=== PATIENT | female | born 1970 | race American Indian/Alaskan Native ===

== ENCOUNTER 2020-08-06 00:30 | Inpatient (IN) ==
[2020-08-06] MEDS ORDERED: DEXAMETHASONE 4 MG/1 ML VIAL IV STA (01:16)
[2020-08-06] MEDS ORDERED: SODIUM CHLORIDE 0.9% 1,000 ML IV STA (01:16)
[2020-08-06 01:47] LABS: Basophils % 0.2 % (0.0-0.8); Hematocrit 46.4 VOL% (35.7-47.0); Hemoglobin 15.1 GM/DL (12.0-16.0); Immature Granulocytes % 0.2 %; Immature Granulocytes Absolute 0.01 #; Lymphocytes # 1.7 10*3/uL (1.4-4.0); Lymphocytes % 40.1 % (21.3-54.2); Mean Corpuscular HGB Conc 32.5 GM/DL (32-36); Mean Corpuscular Volume 100.2 FL (87-102); Mean Platelet Volume 9.5 FL (9.6-12.0); Monocytes % 17.1 % (1.7-12.7); Neutrophils % 42.4 % (38.7-73.9); Platelet Count 155 T/CUMM (130-400); Red Blood Count 4.63 MC/CUMM (3.8-5.5); White Blood Count 4.1 T/CUMM (4-12)
[2020-08-06 01:59] LABS: PT Patient Result 10.5 SECS (9.8-11.9); Partial Thromboplastin Time 31.2 SECS (23.9-33.8)
[2020-08-06 02:03] LABS: Calcium 8.3 MG/DL (8.5-10.1); Osmolality,Calculated 274.8 MOS/KG (273-304); Potassium 4.2 MMOL/L (3.5-5.1)
[2020-08-06] MEDS ORDERED: AZITHROMYCIN INJ 500 MG in SODIUM CHLORIDE 0.9% 250 ML IV STA (02:09)
[2020-08-06] MEDS ORDERED: cefTRIAXone 1,000 MG in SODIUM CHLORIDE 0.9% 100 ML IV STA (02:09)
[2020-08-06] MEDS ORDERED: DEXTROSE 50% 25 GM/50 ML VIAL IV PRN (02:25)
[2020-08-06] MEDS ORDERED: GLUCAGON 1 MG VIAL IM PRN (02:25)
[2020-08-06] MEDS ORDERED: ONDANSETRON 4 MG/2 ML VIAL IV PRN (02:25)
[2020-08-06 02:30] LABS: Lymphocytes 29 % (20-55); Segmented Neutrophils 56 % (50-85); Total Cells Counted 100
[2020-08-06] MEDS ORDERED: DEXAMETHASONE 0.5 MG TABLET PO SCH (02:30)
[2020-08-06] MEDS ORDERED: SODIUM CHLORIDE 0.9% 1,000 ML IV SCH (02:30)
[2020-08-06 02:31] LABS: Macrocytosis 1+; Platelet Estimate Normal
[2020-08-06] MEDS ORDERED: amLODIPine 5 MG TABLET PO SCH (03:00)
[2020-08-06] MEDS: SODIUM CHLORIDE 0.9% 1,000 ML IV SCH ×2 (04:25→14:32)
[2020-08-06 05:50] LABS: Hematocrit 45.5 VOL% (35.7-47.0); Hemoglobin 14.8 GM/DL (12.0-16.0); Immature Granulocytes % 0.4 %; Immature Granulocytes Absolute 0.01 #; Lymphocytes # 0.7 10*3/uL (1.4-4.0); Mean Corpuscular HGB Conc 32.5 GM/DL (32-36); Mean Platelet Volume 9.3 FL (9.6-12.0); Monocytes % 10.5 % (1.7-12.7); Neutrophils % 62.1 % (38.7-73.9); Platelet Count 135 T/CUMM (130-400); Red Blood Count 4.55 MC/CUMM (3.8-5.5); Red Cell Distribution Width 13.1 % (9.3-17.3); White Blood Count 2.6 T/CUMM (4-12)
[2020-08-06 06:10] LABS: Potassium 4.8 MMOL/L (3.5-5.1)
[2020-08-06 06:16] LABS: C-Reactive Protein HS Cardiac 1.27 MG/DL (0-0.3); Ferritin 435.5 ng/ml (8-252)
[2020-08-06] MEDS: ENOXAPARIN 40 MG/0.4 ML SYRINGE SUBCUT SCH (06:20)
[2020-08-06] MEDS: PANTOPRAZOLE 40 MG TABLET PO SCH (08:13)
[2020-08-06] MEDS: CHOLECALCIFEROL 1,000 UNIT TABLET PO SCH (08:14)
[2020-08-06] MEDS: ASCORBIC ACID 500 MG TABLET PO SCH ×2 (08:14→20:54)
[2020-08-06] MEDS: CETIRIZINE 10 MG TABLET PO SCH (08:14)
[2020-08-06] MEDS: MONTELUKAST 10 MG TABLET PO SCH (08:14)
[2020-08-06] MEDS: ZINC SULFATE 220 MG CAPSULE PO SCH (08:14)
[2020-08-06] MEDS ORDERED: lisinopriL 20 MG TABLET PO SCH (09:00)
[2020-08-06] MEDS ORDERED: REMDESIVIR 200 MG in SODIUM CHLORIDE 0.9% 210 ML IV ONE (09:30)
[2020-08-06] MEDS ORDERED: SODIUM CHLORIDE 0.9% 1,000 ML IV PRN (14:00)
[2020-08-06] MEDS: cefTRIAXone 2,000 MG in SODIUM CHLORIDE 0.9% 100 ML IV SCH (20:54)
[2020-08-07] MEDS: SODIUM CHLORIDE 0.9% 1,000 ML IV SCH ×3 (01:54→23:45)
[2020-08-07] MEDS: DEXAMETHASONE 4 MG/1 ML VIAL IV SCH (03:50)
[2020-08-07] MEDS: ENOXAPARIN 40 MG/0.4 ML SYRINGE SUBCUT SCH (05:40)
[2020-08-07] MEDS: CHOLECALCIFEROL 1,000 UNIT TABLET PO SCH (09:03)
[2020-08-07] MEDS: FOLIC ACID 1 MG TABLET PO SCH (09:04)
[2020-08-07] MEDS: ZINC SULFATE 220 MG CAPSULE PO SCH (09:04)
[2020-08-07] MEDS: MULTIVITAMIN (CENTRUM) TABLET PO SCH (09:04)
[2020-08-07] MEDS: REMDESIVIR 100 MG in SODIUM CHLORIDE 0.9% 100 ML IV SCH (09:04)
[2020-08-07] MEDS: MONTELUKAST 10 MG TABLET PO SCH (09:04)
[2020-08-07] MEDS: PANTOPRAZOLE 40 MG TABLET PO SCH (09:04)
[2020-08-07] MEDS: CETIRIZINE 10 MG TABLET PO SCH (09:04)
[2020-08-07] MEDS: ASCORBIC ACID 500 MG TABLET PO SCH ×2 (09:04→20:21)
[2020-08-07] MEDS: AZITHROMYCIN 250 MG TABLET PO SCH (09:04)
[2020-08-07] MEDS: cefTRIAXone 2,000 MG in SODIUM CHLORIDE 0.9% 100 ML IV SCH (20:21)
[2020-08-08] MEDS: DEXAMETHASONE 4 MG/1 ML VIAL IV SCH (03:47)
[2020-08-08] MEDS: ENOXAPARIN 40 MG/0.4 ML SYRINGE SUBCUT SCH (06:20)
[2020-08-08] MEDS: CHOLECALCIFEROL 1,000 UNIT TABLET PO SCH (08:52)
[2020-08-08] MEDS: CETIRIZINE 10 MG TABLET PO SCH (08:52)
[2020-08-08] MEDS: ZINC SULFATE 220 MG CAPSULE PO SCH (08:52)
[2020-08-08] MEDS: MONTELUKAST 10 MG TABLET PO SCH (08:52)
[2020-08-08] MEDS: MULTIVITAMIN (CENTRUM) TABLET PO SCH (08:53)
[2020-08-08] MEDS: ASCORBIC ACID 500 MG TABLET PO SCH ×2 (08:53→20:15)
[2020-08-08] MEDS: FOLIC ACID 1 MG TABLET PO SCH (08:53)
[2020-08-08] MEDS: AZITHROMYCIN 250 MG TABLET PO SCH (08:53)
[2020-08-08] MEDS: PANTOPRAZOLE 40 MG TABLET PO SCH (08:54)
[2020-08-08] MEDS: REMDESIVIR 100 MG in SODIUM CHLORIDE 0.9% 100 ML IV SCH (09:16)
[2020-08-08] MEDS: SODIUM CHLORIDE 0.9% 1,000 ML IV SCH ×2 (10:18→20:15)
[2020-08-08] MEDS: METHOTREXATE 2.5 MG TABLET PO SCH (10:22)
[2020-08-08] MEDS: cefTRIAXone 2,000 MG in SODIUM CHLORIDE 0.9% 100 ML IV SCH (20:15)
[2020-08-09] MEDS: DEXAMETHASONE 4 MG/1 ML VIAL IV SCH (02:10)
[2020-08-09] MEDS: ENOXAPARIN 40 MG/0.4 ML SYRINGE SUBCUT SCH (06:30)
[2020-08-09] MEDS: SODIUM CHLORIDE 0.9% 1,000 ML IV SCH (07:08)
[2020-08-09] MEDS: AZITHROMYCIN 250 MG TABLET PO SCH (08:56)
[2020-08-09] MEDS: ZINC SULFATE 220 MG CAPSULE PO SCH (08:56)
[2020-08-09] MEDS: MONTELUKAST 10 MG TABLET PO SCH (08:57)
[2020-08-09] MEDS: REMDESIVIR 100 MG in SODIUM CHLORIDE 0.9% 100 ML IV SCH (08:57)
[2020-08-09] MEDS: PANTOPRAZOLE 40 MG TABLET PO SCH (08:57)
[2020-08-09] MEDS: FOLIC ACID 1 MG TABLET PO SCH (08:57)
[2020-08-09] MEDS: CETIRIZINE 10 MG TABLET PO SCH (08:57)
[2020-08-09] MEDS: ASCORBIC ACID 500 MG TABLET PO SCH ×2 (08:57→21:00)
[2020-08-09] MEDS: CHOLECALCIFEROL 1,000 UNIT TABLET PO SCH (08:57)
[2020-08-09] MEDS: MULTIVITAMIN (CENTRUM) TABLET PO SCH (08:57)
[2020-08-09] MEDS ORDERED: INFLUENZA VIRUS VACCINE 0.5 ML SYRINGE IM ONE (09:00)
[2020-08-09] MEDS ORDERED: FUROSEMIDE 40 MG/4 ML VIAL IV ONE (09:31)
[2020-08-09 10:30] LABS: Hematocrit 41.8 VOL% (35.7-47.0); Hemoglobin 13.7 GM/DL (12.0-16.0); Immature Granulocytes % 0.4 %; Immature Granulocytes Absolute 0.02 #; Lymphocytes # 0.7 10*3/uL (1.4-4.0); Lymphocytes % 14.6 % (21.3-54.2); Mean Corpuscular HGB Conc 32.8 GM/DL (32-36); Mean Platelet Volume 9.6 FL (9.6-12.0); Monocytes % 7.8 % (1.7-12.7); Neutrophils % 77.2 % (38.7-73.9); Platelet Count 155 T/CUMM (130-400); Red Blood Count 4.18 MC/CUMM (3.8-5.5); Red Cell Distribution Width 13.1 % (9.3-17.3); White Blood Count 4.6 T/CUMM (4-12)
[2020-08-09 10:45] LABS: Calcium 8.5 MG/DL (8.5-10.1); Osmolality,Calculated 279.4 MOS/KG (273-304); Potassium 4.1 MMOL/L (3.5-5.1)
[2020-08-09] MEDS: cefTRIAXone 2,000 MG in SODIUM CHLORIDE 0.9% 100 ML IV SCH (21:00)
[2020-08-10] MEDS: DEXAMETHASONE 4 MG/1 ML VIAL IV SCH (02:37)
[2020-08-10] MEDS: ENOXAPARIN 40 MG/0.4 ML SYRINGE SUBCUT SCH (05:55)
[2020-08-10] MEDS: FOLIC ACID 1 MG TABLET PO SCH (08:15)
[2020-08-10] MEDS: CETIRIZINE 10 MG TABLET PO SCH (08:15)
[2020-08-10] MEDS: MONTELUKAST 10 MG TABLET PO SCH (08:15)
[2020-08-10] MEDS: AZITHROMYCIN 250 MG TABLET PO SCH (08:15)
[2020-08-10] MEDS: ZINC SULFATE 220 MG CAPSULE PO SCH (08:15)
[2020-08-10] MEDS: ASCORBIC ACID 500 MG TABLET PO SCH ×2 (08:15→20:33)
[2020-08-10] MEDS: PANTOPRAZOLE 40 MG TABLET PO SCH (08:15)
[2020-08-10] MEDS: CHOLECALCIFEROL 1,000 UNIT TABLET PO SCH (08:16)
[2020-08-10] MEDS: REMDESIVIR 100 MG in SODIUM CHLORIDE 0.9% 100 ML IV SCH (08:43)
[2020-08-10] MEDS: MULTIVITAMIN (CENTRUM) TABLET PO SCH (08:43)
[2020-08-10] MEDS ORDERED: FUROSEMIDE 40 MG/4 ML VIAL IV ONE (10:24)
[2020-08-10] MEDS: ACETAMINOPHEN 325 MG TABLET PO PRN (20:32)
[2020-08-10] MEDS: FAMOTIDINE 20 MG TABLET PO SCH (20:32)
[2020-08-10] MEDS: cefTRIAXone 2,000 MG in SODIUM CHLORIDE 0.9% 100 ML IV SCH (20:33)
[2020-08-11] MEDS: DEXAMETHASONE 4 MG/1 ML VIAL IV SCH (02:53)
[2020-08-11 04:55] LABS: Basophils % 0.2 % (0.0-0.8); Eosinophils % 0.4 % (0.00-10.9); Hematocrit 42.4 VOL% (35.7-47.0); Hemoglobin 14.1 GM/DL (12.0-16.0); Immature Granulocytes % 0.2 %; Immature Granulocytes Absolute 0.01 #; Lymphocytes # 1.5 10*3/uL (1.4-4.0); Lymphocytes % 32.7 % (21.3-54.2); Mean Corpuscular HGB Conc 33.3 GM/DL (32-36); Mean Corpuscular Volume 98.1 FL (87-102); Mean Platelet Volume 9.8 FL (9.6-12.0); Monocytes % 10.5 % (1.7-12.7); Platelet Count 200 T/CUMM (130-400); Red Blood Count 4.32 MC/CUMM (3.8-5.5); Red Cell Distribution Width 12.9 % (9.3-17.3); White Blood Count 4.6 T/CUMM (4-12)
[2020-08-11] MEDS: ENOXAPARIN 40 MG/0.4 ML SYRINGE SUBCUT SCH (05:05)
[2020-08-11 05:32] LABS: Albumin 2.7 G/DL (3.4-5.0); Bilirubin,Direct 0.16 MG/DL (0.0-0.20); Bilirubin,Indirect 0.8 MG/DL (0.0-1.0); Calcium 8.6 MG/DL (8.5-10.1); Ferritin 394.5 ng/ml (8-252); Osmolality,Calculated 278.5 MOS/KG (273-304); Potassium 3.6 MMOL/L (3.5-5.1); Total Protein 7.3 G/DL (5.0-7.5)
[2020-08-11] MEDS: AZITHROMYCIN 250 MG TABLET PO SCH (08:29)
[2020-08-11] MEDS: CETIRIZINE 10 MG TABLET PO SCH (08:29)
[2020-08-11] MEDS: ASCORBIC ACID 500 MG TABLET PO SCH ×2 (08:29→20:27)
[2020-08-11] MEDS: ZINC SULFATE 220 MG CAPSULE PO SCH (08:29)
[2020-08-11] MEDS: MONTELUKAST 10 MG TABLET PO SCH (08:29)
[2020-08-11] MEDS: FOLIC ACID 1 MG TABLET PO SCH (08:29)
[2020-08-11] MEDS: FAMOTIDINE 20 MG TABLET PO SCH ×2 (08:29→20:27)
[2020-08-11] MEDS: CHOLECALCIFEROL 1,000 UNIT TABLET PO SCH (08:29)
[2020-08-11] MEDS: MULTIVITAMIN (CENTRUM) TABLET PO SCH (08:30)
[2020-08-11 10:46] LABS: ABG Base Excess 5.5 MMOL/L (-2.5-2.5); ABG HCO3 29.2 MMOL/L (20-26); ABG PCO2 47.6 MM HG (35-48); ABG PH 7.424 (7.35-7.45); ABG PO2 68.2 MM HG (80-95); ABG TCO2 26.3 MMOL/L (23-27)
[2020-08-11] MEDS: FUROSEMIDE 40 MG/4 ML VIAL IV SCH (14:33)
[2020-08-11] MEDS: ALBUTEROL INHALER 18 GM INH SCH (18:14)
[2020-08-11] MEDS: FLUTICASONE/SALMETEROL 100-50 DISKUS 14 DOSE INH SCH (20:27)
[2020-08-12] MEDS: ALBUTEROL INHALER 18 GM INH SCH ×4 (00:03→18:31)
[2020-08-12] MEDS: DEXAMETHASONE 4 MG/1 ML VIAL IV SCH (04:02)
[2020-08-12] MEDS: ENOXAPARIN 40 MG/0.4 ML SYRINGE SUBCUT SCH (05:36)
[2020-08-12] MEDS: ZINC SULFATE 220 MG CAPSULE PO SCH (08:38)
[2020-08-12] MEDS: FUROSEMIDE 40 MG/4 ML VIAL IV SCH (08:38)
[2020-08-12] MEDS: ASCORBIC ACID 500 MG TABLET PO SCH ×2 (08:39→20:08)
[2020-08-12] MEDS: CHOLECALCIFEROL 1,000 UNIT TABLET PO SCH (08:39)
[2020-08-12] MEDS: FLUTICASONE/SALMETEROL 100-50 DISKUS 14 DOSE INH SCH ×2 (08:39→20:08)
[2020-08-12] MEDS: CETIRIZINE 10 MG TABLET PO SCH (08:39)
[2020-08-12] MEDS: FOLIC ACID 1 MG TABLET PO SCH (08:39)
[2020-08-12] MEDS: MULTIVITAMIN (CENTRUM) TABLET PO SCH (08:39)
[2020-08-12] MEDS: MONTELUKAST 10 MG TABLET PO SCH (08:39)
[2020-08-12] MEDS: FAMOTIDINE 20 MG TABLET PO SCH ×2 (08:39→20:08)
[2020-08-13] MEDS: ALBUTEROL INHALER 18 GM INH SCH ×4 (00:15→19:24)
[2020-08-13] MEDS: DEXAMETHASONE 4 MG/1 ML VIAL IV SCH (02:28)
[2020-08-13 03:37] LABS: ABG Base Excess 5.7 MMOL/L (-2.5-2.5); ABG HCO3 29.9 MMOL/L (20-26); ABG Oxygen Saturation 89.1 % (95-100); ABG PCO2 41.9 MM HG (35-48); ABG PH 7.472 (7.35-7.45); ABG PO2 57.3 MM HG (80-95); ABG TCO2 31.2 MMOL/L (23-27)
[2020-08-13 05:47] LABS: Osmolality,Calculated 277.8 MOS/KG (273-304)
[2020-08-13] MEDS: ENOXAPARIN 40 MG/0.4 ML SYRINGE SUBCUT SCH (06:12)
[2020-08-13] MEDS: FLUTICASONE/SALMETEROL 100-50 DISKUS 14 DOSE INH SCH ×2 (08:24→20:00)
[2020-08-13] MEDS: ASCORBIC ACID 500 MG TABLET PO SCH ×2 (08:25→20:00)
[2020-08-13] MEDS: FAMOTIDINE 20 MG TABLET PO SCH ×2 (08:25→20:00)
[2020-08-13] MEDS: CETIRIZINE 10 MG TABLET PO SCH (08:25)
[2020-08-13] MEDS: FOLIC ACID 1 MG TABLET PO SCH (08:25)
[2020-08-13] MEDS: CHOLECALCIFEROL 1,000 UNIT TABLET PO SCH (08:25)
[2020-08-13] MEDS: ZINC SULFATE 220 MG CAPSULE PO SCH (08:25)
[2020-08-13] MEDS: MONTELUKAST 10 MG TABLET PO SCH (08:26)
[2020-08-13] MEDS: MULTIVITAMIN (CENTRUM) TABLET PO SCH (12:58)
[2020-08-14] MEDS: ALBUTEROL INHALER 18 GM INH SCH ×4 (00:35→19:20)
[2020-08-14] MEDS: ACETAMINOPHEN 325 MG TABLET PO PRN ×2 (00:35→16:01)
[2020-08-14] MEDS: DEXAMETHASONE 4 MG/1 ML VIAL IV SCH (04:59)
[2020-08-14] MEDS ORDERED: SODIUM CHLORIDE 0.9% 250 ML IV ONE (05:16)
[2020-08-14] MEDS: ENOXAPARIN 40 MG/0.4 ML SYRINGE SUBCUT SCH (05:40)
[2020-08-14] MEDS: CETIRIZINE 10 MG TABLET PO SCH (08:27)
[2020-08-14] MEDS: ASCORBIC ACID 500 MG TABLET PO SCH ×2 (08:27→20:58)
[2020-08-14] MEDS: CHOLECALCIFEROL 1,000 UNIT TABLET PO SCH (08:27)
[2020-08-14] MEDS: MONTELUKAST 10 MG TABLET PO SCH (08:27)
[2020-08-14] MEDS: FOLIC ACID 1 MG TABLET PO SCH (08:28)
[2020-08-14] MEDS: FAMOTIDINE 20 MG TABLET PO SCH ×2 (08:28→20:58)
[2020-08-14] MEDS: MULTIVITAMIN (CENTRUM) TABLET PO SCH (08:28)
[2020-08-14] MEDS: ZINC SULFATE 220 MG CAPSULE PO SCH (08:28)
[2020-08-14] MEDS: FLUTICASONE/SALMETEROL 100-50 DISKUS 14 DOSE INH SCH ×2 (09:30→20:56)
[2020-08-14] MEDS ORDERED: BENZOCAINE/MENTHOL LOZENGE 18/BOX PO PRN (10:27)
[2020-08-15] MEDS: ALBUTEROL INHALER 18 GM INH SCH ×4 (00:15→18:25)
[2020-08-15] MEDS: DEXAMETHASONE 4 MG/1 ML VIAL IV SCH (02:25)
[2020-08-15] MEDS: ENOXAPARIN 40 MG/0.4 ML SYRINGE SUBCUT SCH (06:15)
[2020-08-15 06:22] LABS: Eosinophils % 0.2 % (0.00-10.9); Hematocrit 43.9 VOL% (35.7-47.0); Hemoglobin 14.9 GM/DL (12.0-16.0); Immature Granulocytes % 0.2 %; Immature Granulocytes Absolute 0.01 #; Lymphocytes # 0.5 10*3/uL (1.4-4.0); Lymphocytes % 8.1 % (21.3-54.2); Mean Corpuscular HGB Conc 33.9 GM/DL (32-36); Mean Corpuscular Volume 97.8 FL (87-102); Monocytes % 5.5 % (1.7-12.7); Platelet Count 182 T/CUMM (130-400); Red Blood Count 4.49 MC/CUMM (3.8-5.5); Red Cell Distribution Width 13.2 % (9.3-17.3); White Blood Count 5.8 T/CUMM (4-12)
[2020-08-15 06:51] LABS: Calcium 8.5 MG/DL (8.5-10.1); Potassium 4.4 MMOL/L (3.5-5.1)
[2020-08-15] MEDS: MULTIVITAMIN (CENTRUM) TABLET PO SCH (08:38)
[2020-08-15] MEDS: ZINC SULFATE 220 MG CAPSULE PO SCH (08:38)
[2020-08-15] MEDS: CHOLECALCIFEROL 1,000 UNIT TABLET PO SCH (08:38)
[2020-08-15] MEDS: MONTELUKAST 10 MG TABLET PO SCH (08:38)
[2020-08-15] MEDS: CETIRIZINE 10 MG TABLET PO SCH (08:39)
[2020-08-15] MEDS: FOLIC ACID 1 MG TABLET PO SCH (08:39)
[2020-08-15] MEDS: FAMOTIDINE 20 MG TABLET PO SCH ×2 (08:39→21:45)
[2020-08-15] MEDS: ASCORBIC ACID 500 MG TABLET PO SCH ×2 (08:39→21:45)
[2020-08-15] MEDS: METHOTREXATE 2.5 MG TABLET PO SCH (09:33)
[2020-08-15] MEDS: FLUTICASONE/SALMETEROL 100-50 DISKUS 14 DOSE INH SCH ×2 (09:34→21:45)
[2020-08-15] MEDS ORDERED: DOCUSATE SODIUM 100 MG CAPSULE PO PRN (09:49)
[2020-08-15] MEDS: PIPERACILLIN/TAZOBACTAM 3,375 MG in SODIUM CHLORIDE 0.9% 100 ML IV SCH ×2 (11:22→19:16)
[2020-08-15] MEDS: FUROSEMIDE 40 MG/4 ML VIAL IV SCH ×3 (11:22→23:03)
[2020-08-16] MEDS: ALBUTEROL INHALER 18 GM INH SCH ×4 (00:43→20:42)
[2020-08-16] MEDS: PIPERACILLIN/TAZOBACTAM 3,375 MG in SODIUM CHLORIDE 0.9% 100 ML IV SCH ×3 (02:03→17:20)
[2020-08-16] MEDS: DEXAMETHASONE 4 MG/1 ML VIAL IV SCH (03:05)
[2020-08-16 04:28] LABS: Basophils % 0.2 % (0.0-0.8); Eosinophils % 0.2 % (0.00-10.9); Hematocrit 44.9 VOL% (35.7-47.0); Hemoglobin 14.5 GM/DL (12.0-16.0); Immature Granulocytes % 0.3 %; Immature Granulocytes Absolute 0.02 #; Lymphocytes # 0.5 10*3/uL (1.4-4.0); Lymphocytes % 8.7 % (21.3-54.2); Mean Corpuscular HGB Conc 32.3 GM/DL (32-36); Mean Platelet Volume 9.2 FL (9.6-12.0); Monocytes % 7.6 % (1.7-12.7); Platelet Count 185 T/CUMM (130-400); Red Blood Count 4.49 MC/CUMM (3.8-5.5); Red Cell Distribution Width 12.8 % (9.3-17.3); White Blood Count 6.2 T/CUMM (4-12)
[2020-08-16 04:48] LABS: Calcium 8.6 MG/DL (8.5-10.1); Potassium 4.1 MMOL/L (3.5-5.1)
[2020-08-16] MEDS: ENOXAPARIN 40 MG/0.4 ML SYRINGE SUBCUT SCH (05:34)
[2020-08-16] MEDS: MONTELUKAST 10 MG TABLET PO SCH (08:55)
[2020-08-16] MEDS: ASCORBIC ACID 500 MG TABLET PO SCH ×2 (08:55→20:42)
[2020-08-16] MEDS: CETIRIZINE 10 MG TABLET PO SCH (08:55)
[2020-08-16] MEDS: CHOLECALCIFEROL 1,000 UNIT TABLET PO SCH (08:55)
[2020-08-16] MEDS: FOLIC ACID 1 MG TABLET PO SCH (08:55)
[2020-08-16] MEDS: ZINC SULFATE 220 MG CAPSULE PO SCH (08:55)
[2020-08-16] MEDS: FAMOTIDINE 20 MG TABLET PO SCH ×2 (08:56→20:42)
[2020-08-16] MEDS: MULTIVITAMIN (CENTRUM) TABLET PO SCH (08:56)
[2020-08-16] MEDS: FLUTICASONE/SALMETEROL 100-50 DISKUS 14 DOSE INH SCH ×2 (08:56→20:42)
[2020-08-17] MEDS: ALBUTEROL INHALER 18 GM INH SCH ×4 (00:40→19:25)
[2020-08-17] MEDS: PIPERACILLIN/TAZOBACTAM 3,375 MG in SODIUM CHLORIDE 0.9% 100 ML IV SCH ×3 (01:12→17:21)
[2020-08-17] MEDS: DEXAMETHASONE 4 MG/1 ML VIAL IV SCH (03:52)
[2020-08-17] MEDS: ENOXAPARIN 40 MG/0.4 ML SYRINGE SUBCUT SCH (05:19)
[2020-08-17] MEDS: MONTELUKAST 10 MG TABLET PO SCH (09:38)
[2020-08-17] MEDS: CETIRIZINE 10 MG TABLET PO SCH (09:38)
[2020-08-17] MEDS: ZINC SULFATE 220 MG CAPSULE PO SCH (09:38)
[2020-08-17] MEDS: FAMOTIDINE 20 MG TABLET PO SCH ×2 (09:38→20:59)
[2020-08-17] MEDS: ASCORBIC ACID 500 MG TABLET PO SCH ×2 (09:38→20:58)
[2020-08-17] MEDS: CHOLECALCIFEROL 1,000 UNIT TABLET PO SCH (09:38)
[2020-08-17] MEDS: MULTIVITAMIN (CENTRUM) TABLET PO SCH (09:38)
[2020-08-17] MEDS: FOLIC ACID 1 MG TABLET PO SCH (09:38)
[2020-08-17] MEDS: FUROSEMIDE 40 MG/4 ML VIAL IV SCH (09:38)
[2020-08-17] MEDS: FLUTICASONE/SALMETEROL 100-50 DISKUS 14 DOSE INH SCH ×2 (09:38→20:59)
[2020-08-18] MEDS: ALBUTEROL INHALER 18 GM INH SCH ×4 (00:07→19:00)
[2020-08-18] MEDS: DEXAMETHASONE 4 MG/1 ML VIAL IV SCH (02:18)
[2020-08-18] MEDS: PIPERACILLIN/TAZOBACTAM 3,375 MG in SODIUM CHLORIDE 0.9% 100 ML IV SCH ×3 (02:20→17:12)
[2020-08-18 05:00] LABS: Eosinophils # 0.1 10*3/uL (0.0-0.87); Eosinophils % 1.3 % (0.00-10.9); Hematocrit 41.5 VOL% (35.7-47.0); Hemoglobin 13.6 GM/DL (12.0-16.0); Immature Granulocytes % 0.6 %; Immature Granulocytes Absolute 0.03 #; Lymphocytes # 0.8 10*3/uL (1.4-4.0); Lymphocytes % 14.3 % (21.3-54.2); Mean Corpuscular HGB Conc 32.8 GM/DL (32-36); Mean Corpuscular Volume 99.5 FL (87-102); Monocytes % 7.2 % (1.7-12.7); Neutrophils % 76.6 % (38.7-73.9); Platelet Count 182 T/CUMM (130-400); Red Blood Count 4.17 MC/CUMM (3.8-5.5); Red Cell Distribution Width 12.7 % (9.3-17.3); White Blood Count 5.4 T/CUMM (4-12)
[2020-08-18 05:24] LABS: Calcium 8.2 MG/DL (8.5-10.1); Osmolality,Calculated 279.5 MOS/KG (273-304); Potassium 4.2 MMOL/L (3.5-5.1)
[2020-08-18] MEDS: ENOXAPARIN 40 MG/0.4 ML SYRINGE SUBCUT SCH (06:00)
[2020-08-18] MEDS: FUROSEMIDE 40 MG/4 ML VIAL IV SCH (10:12)
[2020-08-18] MEDS: MONTELUKAST 10 MG TABLET PO SCH (10:15)
[2020-08-18] MEDS: ZINC SULFATE 220 MG CAPSULE PO SCH (10:15)
[2020-08-18] MEDS: MULTIVITAMIN (CENTRUM) TABLET PO SCH (10:15)
[2020-08-18] MEDS: FAMOTIDINE 20 MG TABLET PO SCH ×2 (10:15→22:11)
[2020-08-18] MEDS: FLUTICASONE/SALMETEROL 100-50 DISKUS 14 DOSE INH SCH ×2 (10:15→22:10)
[2020-08-18] MEDS: CETIRIZINE 10 MG TABLET PO SCH (10:15)
[2020-08-18] MEDS: FOLIC ACID 1 MG TABLET PO SCH (10:15)
[2020-08-18] MEDS: CHOLECALCIFEROL 1,000 UNIT TABLET PO SCH (10:15)
[2020-08-18] MEDS: ASCORBIC ACID 500 MG TABLET PO SCH ×2 (10:15→22:11)
[2020-08-18] MEDS: ACETAMINOPHEN 325 MG TABLET PO PRN (22:11)
[2020-08-19] MEDS: ALBUTEROL INHALER 18 GM INH SCH ×4 (00:15→19:21)
[2020-08-19] MEDS: PIPERACILLIN/TAZOBACTAM 3,375 MG in SODIUM CHLORIDE 0.9% 100 ML IV SCH ×3 (01:58→19:21)
[2020-08-19] MEDS: DEXAMETHASONE 4 MG/1 ML VIAL IV SCH (01:59)
[2020-08-19] MEDS: ENOXAPARIN 40 MG/0.4 ML SYRINGE SUBCUT SCH (06:05)
[2020-08-19] MEDS: FAMOTIDINE 20 MG TABLET PO SCH ×2 (09:26→21:54)
[2020-08-19] MEDS: DEXAMETHASONE 4 MG TABLET PO SCH (09:26)
[2020-08-19] MEDS: FLUTICASONE/SALMETEROL 100-50 DISKUS 14 DOSE INH SCH ×2 (09:26→21:54)
[2020-08-19] MEDS: FOLIC ACID 1 MG TABLET PO SCH (09:26)
[2020-08-19] MEDS: CETIRIZINE 10 MG TABLET PO SCH (09:26)
[2020-08-19] MEDS: FUROSEMIDE 40 MG/4 ML VIAL IV SCH (09:26)
[2020-08-19] MEDS: CHOLECALCIFEROL 1,000 UNIT TABLET PO SCH (09:26)
[2020-08-19] MEDS: MONTELUKAST 10 MG TABLET PO SCH (09:26)
[2020-08-19] MEDS: ZINC SULFATE 220 MG CAPSULE PO SCH (09:26)
[2020-08-19] MEDS: ASCORBIC ACID 500 MG TABLET PO SCH ×2 (09:26→21:54)
[2020-08-19] MEDS: MULTIVITAMIN (CENTRUM) TABLET PO SCH (09:26)
[2020-08-20] MEDS: ALBUTEROL INHALER 18 GM INH SCH ×4 (00:15→21:28)
[2020-08-20] MEDS: PIPERACILLIN/TAZOBACTAM 3,375 MG in SODIUM CHLORIDE 0.9% 100 ML IV SCH ×3 (02:42→17:22)
[2020-08-20 05:02] LABS: Basophils % 0.2 % (0.0-0.8); Eosinophils % 0.7 % (0.00-10.9); Hematocrit 39.1 VOL% (35.7-47.0); Hemoglobin 12.9 GM/DL (12.0-16.0); Immature Granulocytes % 0.5 %; Immature Granulocytes Absolute 0.03 #; Lymphocytes # 1.2 10*3/uL (1.4-4.0); Lymphocytes % 20.2 % (21.3-54.2); Mean Corpuscular Volume 98.2 FL (87-102); Monocytes % 10.5 % (1.7-12.7); Neutrophils % 67.9 % (38.7-73.9); Platelet Count 171 T/CUMM (130-400); Red Blood Count 3.98 MC/CUMM (3.8-5.5); White Blood Count 5.7 T/CUMM (4-12)
[2020-08-20 05:22] LABS: Calcium 8.4 MG/DL (8.5-10.1); Osmolality,Calculated 274.8 MOS/KG (273-304); Potassium 3.6 MMOL/L (3.5-5.1)
[2020-08-20] MEDS: ENOXAPARIN 40 MG/0.4 ML SYRINGE SUBCUT SCH (06:05)
[2020-08-20] MEDS: MULTIVITAMIN (CENTRUM) TABLET PO SCH (08:31)
[2020-08-20] MEDS: FUROSEMIDE 40 MG/4 ML VIAL IV SCH (08:31)
[2020-08-20] MEDS: CETIRIZINE 10 MG TABLET PO SCH (08:31)
[2020-08-20] MEDS: ASCORBIC ACID 500 MG TABLET PO SCH ×2 (08:31→21:28)
[2020-08-20] MEDS: FAMOTIDINE 20 MG TABLET PO SCH ×2 (08:31→21:29)
[2020-08-20] MEDS: ZINC SULFATE 220 MG CAPSULE PO SCH (08:31)
[2020-08-20] MEDS: MONTELUKAST 10 MG TABLET PO SCH (08:31)
[2020-08-20] MEDS: CHOLECALCIFEROL 1,000 UNIT TABLET PO SCH (08:31)
[2020-08-20] MEDS: FOLIC ACID 1 MG TABLET PO SCH (08:31)
[2020-08-20] MEDS: DEXAMETHASONE 4 MG TABLET PO SCH (08:31)
[2020-08-20] MEDS: FLUTICASONE/SALMETEROL 100-50 DISKUS 14 DOSE INH SCH ×2 (08:32→21:29)
[2020-08-21] MEDS: PIPERACILLIN/TAZOBACTAM 3,375 MG in SODIUM CHLORIDE 0.9% 100 ML IV SCH ×2 (01:43→09:25)
[2020-08-21] MEDS: ENOXAPARIN 40 MG/0.4 ML SYRINGE SUBCUT SCH (05:06)
[2020-08-21 05:52] LABS: Eosinophils # 0.1 10*3/uL (0.0-0.87); Eosinophils % 1.1 % (0.00-10.9); Hematocrit 41.1 VOL% (35.7-47.0); Hemoglobin 13.7 GM/DL (12.0-16.0); Immature Granulocytes % 0.5 %; Immature Granulocytes Absolute 0.03 #; Lymphocytes # 1.7 10*3/uL (1.4-4.0); Lymphocytes % 26.9 % (21.3-54.2); Mean Corpuscular HGB Conc 33.3 GM/DL (32-36); Mean Corpuscular Volume 96.7 FL (87-102); Mean Platelet Volume 9.9 FL (9.6-12.0); Monocytes % 10.6 % (1.7-12.7); Neutrophils % 60.9 % (38.7-73.9); Platelet Count 183 T/CUMM (130-400); Red Blood Count 4.25 MC/CUMM (3.8-5.5); Red Cell Distribution Width 12.3 % (9.3-17.3); White Blood Count 6.4 T/CUMM (4-12)
[2020-08-21 06:09] LABS: Albumin 2.8 G/DL (3.4-5.0); Calcium 8.7 MG/DL (8.5-10.1); Osmolality,Calculated 277.5 MOS/KG (273-304); Potassium 3.8 MMOL/L (3.5-5.1); Total Protein 6.8 G/DL (6.4-8.2)
[2020-08-21] MEDS: ASCORBIC ACID 500 MG TABLET PO SCH (08:05)
[2020-08-21] MEDS: DEXAMETHASONE 4 MG TABLET PO SCH (08:06)
[2020-08-21] MEDS: CHOLECALCIFEROL 1,000 UNIT TABLET PO SCH (08:06)
[2020-08-21] MEDS: MONTELUKAST 10 MG TABLET PO SCH (08:06)
[2020-08-21] MEDS: FOLIC ACID 1 MG TABLET PO SCH (08:06)
[2020-08-21] MEDS: FAMOTIDINE 20 MG TABLET PO SCH (08:06)
[2020-08-21] MEDS: CETIRIZINE 10 MG TABLET PO SCH (08:06)
[2020-08-21] MEDS: MULTIVITAMIN (CENTRUM) TABLET PO SCH (08:06)
[2020-08-21] MEDS: ZINC SULFATE 220 MG CAPSULE PO SCH (08:06)
[2020-08-21] MEDS: FUROSEMIDE 40 MG/4 ML VIAL IV SCH (08:07)
[2020-08-21] MEDS: FLUTICASONE/SALMETEROL 100-50 DISKUS 14 DOSE INH SCH (09:24)
[2020-08-21] MEDS: ALBUTEROL INHALER 18 GM INH SCH ×2 (09:24→09:25)
[2020-08-21 11:57] VITALS: BP 115/57
== END 2020-08-21 13:35 | DRG 177 ==
LOC: EDBD → EDUNIT# → N.ED 00:30 → SUATTDRO 02:25 → N.EDINP 02:25 → N.2E 03:35
PROVIDERS: ADMIT Internal Medicine; ATTEND Internal Medicine

== ENCOUNTER 2020-11-13 17:27 | Observation (INO) ==
[2020-11-13] MEDS ORDERED: methylPREDNISolone SOD SUC 125 MG/2 ML VIAL IV STA (18:24)
[2020-11-13] MEDS ORDERED: FUROSEMIDE 40 MG/4 ML VIAL IV STA (18:24)
[2020-11-13] MEDS ORDERED: ALBUTEROL NEB SOLN 5 MG/ML 20 ML/BOTTLE CONT NEB SCH (18:30)
[2020-11-13 18:51] LABS: Basophils % 0.3 % (0.0-0.8); Hematocrit 43.2 VOL% (35.7-47.0); Immature Granulocytes % 1.5 %; Lymphocytes # 1.3 10*3/uL (1.4-4.0); Lymphocytes % 19.8 % (21.3-54.2); Mean Corpuscular HGB Conc 32.4 GM/DL (32-36); Mean Corpuscular Volume 102.9 FL (87-102); Mean Platelet Volume 9.1 FL (9.6-12.0); Monocytes % 11.6 % (1.7-12.7); Neutrophils % 66.8 % (38.7-73.9); Platelet Count 218 T/CUMM (130-400); Red Cell Distribution Width 14.1 % (9.3-17.3); White Blood Count 6.5 T/CUMM (4-12)
[2020-11-13] MEDS ORDERED: CALCIUM CARBONATE CHEW 500 MG TABLET PO PRN (18:57)
[2020-11-13] MEDS ORDERED: ACETAMINOPHEN 325 MG TABLET PO PRN (18:57)
[2020-11-13] MEDS ORDERED: LACTULOSE 20 GM/30 ML UDCUP PO PRN (18:57)
[2020-11-13] MEDS ORDERED: ONDANSETRON 4 MG/2 ML VIAL IV PRN (18:57)
[2020-11-13 19:05] LABS: PT Patient Result 10.9 SECS (10.5-12.0)
[2020-11-13] MEDS ORDERED: DOCUSATE SODIUM 100 MG CAPSULE PO PRN (19:05)
[2020-11-13] MEDS ORDERED: ALBUTEROL/IPRATROPIUM 3 ML NEB RESP TX ONE (19:10)
[2020-11-13 19:15] LABS: Albumin 3.7 G/DL (3.4-5.0); Bilirubin,Total 0.4 MG/DL (0.2-1.0); Calcium 9.3 MG/DL (8.5-10.1); Osmolality,Calculated 288.5 MOS/KG (273-304); Potassium 3.9 MMOL/L (3.5-5.1); Total Protein 8.1 G/DL (6.4-8.2)
[2020-11-13] MEDS: ALBUTEROL/IPRATROPIUM 3 ML NEB RESP TX SCH (19:26)
[2020-11-13] MEDS: ENOXAPARIN 40 MG/0.4 ML SYRINGE SUBCUT SCH (22:47)
[2020-11-13] MEDS: FLUTICASONE/SALMETEROL 250-50 DISKUS 14 DOSE INH SCH (22:47)
[2020-11-13] MEDS: FAMOTIDINE 20 MG TABLET PO SCH (22:48)
[2020-11-13] MEDS: ASCORBIC ACID 500 MG TABLET PO SCH (22:48)
[2020-11-13] MEDS: amLODIPine 10 MG TABLET PO SCH (22:48)
[2020-11-13] MEDS: methylPREDNISolone SOD SUC 40 MG/1 ML VIAL IV SCH (23:21)
[2020-11-14] MEDS: ALBUTEROL/IPRATROPIUM 3 ML NEB RESP TX SCH ×4 (00:12→19:52)
[2020-11-14 05:57] LABS: Basophils % 0.2 % (0.0-0.8); Eosinophils % 0.2 % (0.00-10.9); Hematocrit 42.7 VOL% (35.7-47.0); Hemoglobin 13.6 GM/DL (12.0-16.0); Immature Granulocytes % 1.5 %; Immature Granulocytes Absolute 0.09 #; Lymphocytes % 17.3 % (21.3-54.2); Mean Corpuscular HGB Conc 31.9 GM/DL (32-36); Mean Corpuscular Volume 104.9 FL (87-102); Mean Platelet Volume 10.7 FL (9.6-12.0); Monocytes % 5.8 % (1.7-12.7); Platelet Count 186 T/CUMM (130-400); Red Blood Count 4.07 MC/CUMM (3.8-5.5); Red Cell Distribution Width 14.1 % (9.3-17.3)
[2020-11-14 06:17] LABS: Osmolality,Calculated 290.1 MOS/KG (273-304); Potassium 4.8 MMOL/L (3.5-5.1)
[2020-11-14 06:19] LABS: Platelet Estimate Adequate
[2020-11-14] MEDS: methylPREDNISolone SOD SUC 40 MG/1 ML VIAL IV SCH ×2 (07:50→18:21)
[2020-11-14] MEDS ORDERED: AZITHROMYCIN INJ 250 MG in SODIUM CHLORIDE 0.9% 250 ML IV SCH (09:00)
[2020-11-14] MEDS: CHOLECALCIFEROL 1,000 UNIT TABLET PO SCH (09:11)
[2020-11-14] MEDS: MONTELUKAST 10 MG TABLET PO SCH (09:11)
[2020-11-14] MEDS: ASPIRIN EC 81 MG TABLET PO SCH (09:11)
[2020-11-14] MEDS: amLODIPine 10 MG TABLET PO SCH ×2 (09:11→20:52)
[2020-11-14] MEDS: hydroCHLOROthiazide 25 MG TABLET PO SCH (09:11)
[2020-11-14] MEDS: FAMOTIDINE 20 MG TABLET PO SCH ×2 (09:11→20:52)
[2020-11-14] MEDS: ASCORBIC ACID 500 MG TABLET PO SCH ×2 (09:12→20:52)
[2020-11-14] MEDS: PANTOPRAZOLE 40 MG TABLET PO SCH (09:12)
[2020-11-14] MEDS: FLUTICASONE/SALMETEROL 250-50 DISKUS 14 DOSE INH SCH ×2 (09:12→20:52)
[2020-11-14] MEDS: FOLIC ACID 1 MG TABLET PO SCH (09:12)
[2020-11-14] MEDS: LORATADINE 10 MG TABLET PO SCH (09:12)
[2020-11-14] MEDS: cefTRIAXone 1,000 MG in SODIUM CHLORIDE 0.9% 100 ML IV SCH (10:27)
[2020-11-14] MEDS: POLYETHYLENE GLYCOL POWDER 17 GM PACK PO SCH (11:18)
[2020-11-14] MEDS: ENOXAPARIN 40 MG/0.4 ML SYRINGE SUBCUT SCH (18:21)
[2020-11-15] MEDS: ALBUTEROL/IPRATROPIUM 3 ML NEB RESP TX SCH ×2 (00:46→07:06)
[2020-11-15 05:44] LABS: Basophils % 0.2 % (0.0-0.8); Hematocrit 39.8 VOL% (35.7-47.0); Hemoglobin 12.9 GM/DL (12.0-16.0); Immature Granulocytes % 1.5 %; Immature Granulocytes Absolute 0.12 #; Lymphocytes # 1.2 10*3/uL (1.4-4.0); Lymphocytes % 14.8 % (21.3-54.2); Mean Corpuscular HGB Conc 32.4 GM/DL (32-36); Mean Corpuscular Volume 103.4 FL (87-102); Mean Platelet Volume 9.6 FL (9.6-12.0); Monocytes % 7.8 % (1.7-12.7); Neutrophils % 75.7 % (38.7-73.9); Platelet Count 225 T/CUMM (130-400); Red Blood Count 3.85 MC/CUMM (3.8-5.5); Red Cell Distribution Width 13.7 % (9.3-17.3); White Blood Count 8.2 T/CUMM (4-12)
[2020-11-15 05:57] LABS: Calcium 8.9 MG/DL (8.5-10.1); Osmolality,Calculated 290.2 MOS/KG (273-304); Potassium 4.2 MMOL/L (3.5-5.1)
[2020-11-15] MEDS: methylPREDNISolone SOD SUC 40 MG/1 ML VIAL IV SCH (06:13)
[2020-11-15] MEDS: ASPIRIN EC 81 MG TABLET PO SCH (08:49)
[2020-11-15] MEDS: PANTOPRAZOLE 40 MG TABLET PO SCH (08:50)
[2020-11-15] MEDS: MONTELUKAST 10 MG TABLET PO SCH (08:50)
[2020-11-15] MEDS: amLODIPine 10 MG TABLET PO SCH (08:50)
[2020-11-15] MEDS: POLYETHYLENE GLYCOL POWDER 17 GM PACK PO SCH (08:50)
[2020-11-15] MEDS: FAMOTIDINE 20 MG TABLET PO SCH (08:50)
[2020-11-15] MEDS: CHOLECALCIFEROL 1,000 UNIT TABLET PO SCH (08:50)
[2020-11-15] MEDS: ASCORBIC ACID 500 MG TABLET PO SCH (08:50)
[2020-11-15] MEDS: FOLIC ACID 1 MG TABLET PO SCH (08:50)
[2020-11-15] MEDS: LORATADINE 10 MG TABLET PO SCH (08:50)
[2020-11-15] MEDS ORDERED: AZITHROMYCIN INJ 500 MG in SODIUM CHLORIDE 0.9% 250 ML IV SCH (09:00)
[2020-11-15] MEDS: cefTRIAXone 1,000 MG in SODIUM CHLORIDE 0.9% 100 ML IV SCH (09:00)
[2020-11-15] MEDS: hydroCHLOROthiazide 25 MG TABLET PO SCH (09:00)
[2020-11-15] MEDS: FLUTICASONE/SALMETEROL 250-50 DISKUS 14 DOSE INH SCH (09:00)
[2020-11-15 11:03] VITALS: BP 136/77
== END 2020-11-15 12:56 | disposition home or self-care (01) ==
LOC: EDUNIT# → EDBD → N.EDINP 17:27 → N.ED 17:27 → N.3E 20:35
PROVIDERS: ADMIT Internal Medicine; ATTEND Internal Medicine